=== PATIENT | female | born 1985 | race Two or more races ===

== ENCOUNTER 2024-02-19 09:11 | Outpatient (CLI) | payer OTHER | END 2024-02-19 09:26 | disposition home or self-care (01) | LOC: EDBD 09:11 → MAMO-SONO 09:11 | DX: R10.2 Pelvic and perineal pain (principal); N93.9 Abnormal uterine and vaginal bleeding, unspecified; N60.11 Diffuse cystic mastopathy of right breast; N60.12 Diffuse cystic mastopathy of left breast; N64.0 Fissure and fistula of nipple; N63.0 Unspecified lump in unspecified breast ==

== ENCOUNTER 2024-07-30 07:00 | Inpatient (IN) | payer OTHER ==
[~2024-07-30] VITALS: Ht 132.1 cm; Wt 72.6 kg
[2024-07-30 09:15] LABS: HEMATOCRIT 40.9 % (36.0-45.00); HEMOGLOBIN 14.1 g/dL (12.0-15.00); MEAN CELL VOLUME 99.8 fL (80.00-100.00); MEAN CORPUSCULAR HEMOGLOBIN 34.5 pg (27.00-32.0); MEAN CORPUSCULAR HGB CONC 34.5 g/dl (32.0-36.0); PLATELET COUNT 200 K/uL (150-450)
[2024-07-30 09:34] LABS: PH,URINE 5.5 (5.0-8.0); URINE APPEARANCE Clear; URINE BILIRRUBIN Negative (NEGATIVE); URINE BLOOD Negative; URINE COLOR Yellow; URINE GLUCOSE Negative (NEGATIVE); URINE KETONE Negative (NEGATIVE); URINE LEUKOCYTE Negative; URINE NITRATE Negative; URINE PROTEIN Negative (NEGATIVE); URINE UROBILINOGEN 0.2 E.U./dl
[2024-07-30 09:38] LABS: INR 0.99; PARTIAL THROMBOPLASTIN TIME 28.3 SECONDS (22.0-34.0); PROTHROMBIN TIME 10.8 SECONDS (9.0-11.5)
[2024-07-30 09:38] LABS: URINE BACTERIA 397.7 uL (0.0-1933); URINE RBC 2.5 uL (0.0-20.8); URINE WBC 4.4 uL (0.0-23.2)
[2024-07-30 10:11] LABS: ALBUMIN 3.9 gm/dL (3.4-5.0); BILIRUBIN TOTAL 0.31 mg/dL (0.3-1.2); CALCIUM 9.1 mg/dL (8.5-10.1); CREATININE SERUM 0.85 mg/dL (0.55-1.02); GFR 74.07; GLOBULINA 3.4 G/DL (2.4-3.5); POTASSIUM 4.46 mEq/L (3.5-5.1); TOTAL PROTEIN 7.3 gm/dL (6.4-8.2)
[2024-07-30 10:27] LABS: RH POSITIVE
[2024-07-30 12:20] VITALS: BP 109/76
[2024-08-15] MEDS ORDERED: CLINDAMYCIN PHOSPHATE 150 MG/ML (600mg) IV SCH ×2 (05:00→17:00)
[2024-08-15] MEDS ORDERED: CLINDAMYCIN PHOSPHATE 150 MG/ML (600mg) ONE (09:01)
[2024-08-15] MEDS ORDERED: METRONIDAZOLE/SODIUM CHLORIDE 500 MG/100 ML PIGGYBACK IV ONE (09:02)
[2024-08-15] MEDS ORDERED: BUPIVACAINE HCL/MPF 0.5% 30ML VIAL ONE (09:37)
[2024-08-15] MEDS ORDERED: LIDOCAINE HCL 1%/EPINEPHRINE 20ML VIAL IJ ONE (09:37)
[2024-08-15] MEDS ORDERED: CHLORHEXIDINE GLUCONATE 120 ML BOTTLE TOP ONE (09:59)
[2024-08-15] MEDS ORDERED: POVIDONE-IODINE 118 ML BOTT TOP ONE (09:59)
[2024-08-15] MEDS ORDERED: GENTAMICIN SULFATE 40 MG/ML VIAL ONE (10:29)
[2024-08-15] MEDS ORDERED: SURGIFLO APPLICATOR 1 EACH APPL TOP ONE (10:55)
[2024-08-15] MEDS ORDERED: MORPHINE SULFATE 4 MG/ML CARTRIDGE IV PRN (11:30)
[2024-08-15] MEDS ORDERED: RINGERS SOLUTION,LACTATED 1,000 ML IV SCH (11:30)
[2024-08-15] MEDS ORDERED: SUGAMMADEX SODIUM 200 MG/2 ML VIAL IV ONE (11:34)
[2024-08-15] MEDS ORDERED: ACETAMINOPHEN 500 MG GEL..CAP PO SCH (12:00)
[2024-08-15] MEDS ORDERED: MORPHINE SULFATE 4 MG/ML VIAL IV ONE ×3 (12:05→12:50)
[2024-08-15] MEDS ORDERED: SIMETHICONE 125 MG CAPSULE PO SCH (13:00)
[2024-08-15 13:47] LABS: HEMOGLOBIN 12.2 g/dL (12.0-15.00); MEAN CELL VOLUME 98.5 fL (80.00-100.00); MEAN CORPUSCULAR HEMOGLOBIN 34.3 pg (27.00-32.0); MEAN CORPUSCULAR HGB CONC 34.9 g/dl (32.0-36.0); PLATELET COUNT 195 K/uL (150-450); RED BLOOD COUNT 3.56 M/uL (4.00-6.00); RED CELL DISTRIBUTION WIDTH 13.1 % (11.5-14.5)
[2024-08-15 15:03] LABS: ALBUMIN 3.2 gm/dL (3.4-5.0); CALCIUM 8.4 mg/dL (8.5-10.1); CREATININE SERUM 0.69 mg/dL (0.55-1.02); GFR 94.23; PHOSPHOROUS 3.6 mg/dL (2.5-4.9); POTASSIUM 3.99 mEq/L (3.5-5.1)
[2024-08-15] MEDS ORDERED: GABAPENTIN 300 MG CAPSULE PO SCH (17:00)
[2024-08-15] MEDS ORDERED: METOCLOPRAMIDE HCL 5 MG/ML VIAL IV SCH (17:00)
[2024-08-15 17:06] VITALS: BP 100/60; O2SAT 100
[2024-08-15] MEDS ORDERED: DOCUSATE SODIUM 100MG CAP PO SCH (21:00)
[2024-08-15] MEDS ORDERED: FAMOTIDINE/PF 20 MG/2 ML VIAL IV PUSH SCH (21:00)
[2024-08-16 00:53] VITALS: BP 98/60
[2024-08-16 02:09] LABS: MEAN CELL VOLUME 98.1 fL (80.00-100.00); MEAN CORPUSCULAR HGB CONC 35.2 g/dl (32.0-36.0); PLATELET COUNT 171 K/uL (150-450); RED BLOOD COUNT 3.26 M/uL (4.00-6.00); RED CELL DISTRIBUTION WIDTH 12.8 % (11.5-14.5)
[2024-08-16 02:11] LABS: HEMOGLOBIN 11.3 g/dL (12.0-15.00); MEAN CORPUSCULAR HEMOGLOBIN 34.6 pg (27.00-32.0)
[2024-08-16 02:30] LABS: ALBUMIN 2.7 gm/dL (3.4-5.0); CREATININE SERUM 0.84 mg/dL (0.55-1.02); GFR 75.09; PHOSPHOROUS 3.4 mg/dL (2.5-4.9); POTASSIUM 3.88 mEq/L (3.5-5.1)
[2024-08-16 08:00] VITALS: BP 128/74
[2024-08-16] MEDS ORDERED: ENOXAPARIN SODIUM 40 MG/0.4 ML SYRINGE SUBCUTANEO SCH (09:00)
== END 2024-08-16 12:11 | disposition home or self-care (01) | DRG 743 ==
LOC: O/R 08-15 05:00 → OB/GYN 08-15 07:00
PROVIDERS: Obstetrics & Gynecology; ADMIT Obstetrics & Gynecology Gynecologic Oncology; ATTEND Obstetrics & Gynecology Gynecologic Oncology
PROC: 0UT74ZZ Resection of Bilateral Fallopian Tubes, Percutaneous Endoscopic Approach (ICD-10-PCS; 2024-08-15)
PROC: 0UT94ZZ Resection of Uterus, Percutaneous Endoscopic Approach (ICD-10-PCS; principal; 2024-08-15 14:00)
DX: D25.1 Intramural leiomyoma of uterus (principal); D25.2 Subserosal leiomyoma of uterus; N87.0 Mild cervical dysplasia

== ENCOUNTER 2024-08-14 10:59 | Outpatient (CLI) | payer OTHER | END 2024-08-14 23:00 | disposition home or self-care (01) | LOC: LAB 10:59 | PROVIDERS: ATTEND Obstetrics & Gynecology Gynecologic Oncology | DX: N87.0 Mild cervical dysplasia (principal) ==